=== PATIENT | female | born 1995 | race Caucasian/White ===

== ENCOUNTER 2018-11-21 00:02 | Emergency (ER) | payer OTHER ==
[~2018-11-21] VITALS: Ht 170.2 cm; Wt 88.5 kg
[~2018-11-21 00:02] MED LIST: FLOMAX0.4 MG PO; HYDROCODONE-AP1 EAC6 PO; OMEPRAZOLE; PERCOCET 7.5-31 EACH PO; PREVACID30 MG PO; ZOFRAN ODT4 MG PO
[2018-11-21 00:40] LABS: URINE BLOOD 3+ (Negative); URINE CLARITY CLEAR; URINE COLOR DARK YELLOW; URINE GLUCOSE-RANDOM NEGATIVE (Negative); URINE LEUKOCYTES-REFLEX NEGATIVE (Negative); URINE NITRITE-REFLEX NEGATIVE (Negative); URINE PROTEIN 1+ (Negative)
[2018-11-21 00:42] LABS: URINE BILIRUBIN 3+ (Negative); URINE KETONES 3+ (Negative)
[2018-11-21 00:43] LABS: ABSOLUTE BASOPHILS 0.1 thou/uL (0.0-0.2); ABSOLUTE EOSINOPHILS 0.1 thou/uL (0.0-0.7); ABSOLUTE LYMPHOCYTES 3.5 thou/uL (0.8-5.3); ABSOLUTE MONOCYTES 1.2 thou/uL (0.0-1.2); ABSOLUTE NEUTROPHILS 4.4 thou/uL (1.6-8.1); BASOPHILS 0.9 %; EOSINOPHILS 0.8 %; HEMATOCRIT 43.7 % (37.0-47.0); HEMOGLOBIN 14.9 gm/dL (12.0-15.0); LYMPHOCYTES 37.7 %; MCH 29.4 pg (26.0-34.0); MCV 86.4 fL (80.0-100.0); MONOCYTES 12.9 %; MPV 9.7 fl. (7.2-11.1); NUCLEATED RBCS 0 /100WBC; PLATELET COUNT* 233 thou/uL (150-400); POLYS 47.7 %; RBC 5.05 mil/uL (4.20-5.00); WBC 9.2 thou/uL (4.0-11.0)
[2018-11-21 00:46] LABS: ICTOTEST (BILI CONFIRMATORY) Positive (Negative)
[2018-11-21 00:55] LABS: CREATININE 0.8 mg/dL (0.6-1.3); POTASSIUM 3.2 mmol/L (3.5-5.1)
[2018-11-21 00:59] LABS: TOTAL BILIRUBIN 0.8 mg/dL (<0.1-1.0)
[2018-11-21 01:28] LABS: CASTS None Seen /LPF (None Seen); SQUAMOUS >10 Many /LPF (0-3)
[2018-11-21 01:30] LABS: MUCUS 4-6 Moderate strn/LPF (None Seen)
[2018-11-21 01:31] LABS: BACTERIA-REFLEX >30 Many /HPF (None Seen); CRYSTALS None Seen /LPF (None Seen); URINE RBC >20 Many /HPF (0-2); URINE WBC-REFLEX 0-5 Rare /HPF (0-5)
[2018-11-21 02:37] VITALS: BP 100/62
== END 2018-11-21 02:54 | disposition home or self-care (01) ==
LOC: M.ERS 00:02
PROVIDERS: Emergency Medicine Emergency Medical Services
DX: N20.0 Calculus of kidney (principal); R11.2 Nausea with vomiting, unspecified; Z88.6 Allergy status to analgesic agent